=== PATIENT | male | born 1970 | race Caucasian/White ===

== ENCOUNTER → 2016-09-16 | Outpatient (CLI) | payer MEDICARE, OTHER ==
[~2016-09-16] MED LIST: AMARYL1 MG; AMLODIPINE-VAL1 EAC2; CLARITIN10 M2; CRESTOR; LINZESS72 MCG; PRILOSEC; SEROQUEL; TOPROL XL; TRINTELLIX; VITAMIN D400 UNI2
--- NOTE | ~2016-09-16 | CT6 ---
[facility] A Service of [facility] RADIOLOGY TEXT RESULTS PATIENT: ODILIA SIERRA LOCATION: [facility] : 66 UNIT #: [id number] AGE: [address]: Christopher Ho MD SEX: M ORDER DR: [id number] [facility] [address] [place], [place] [address] [id number] O MR#: [id number] Acc #: [id number] NAME: ODILIA SIERRA. : 1970 SEX: M STUDY DATE/TIME: 09/16/2016 11:56 UNIT: [facility] ROOM: STUDY DESCRIPTION: CT Abdomen WWo Cont Attending Physician: Christopher Ho M.D. Referring Physician: Christopher Ho M.D. Ordering Physician: Christopher Ho M.D. Primary Care Physician: Hay Plunkett M.D. MEDICAL IMAGING REPORT This report is preliminary unless electronic signature is present EXAM Multiphase liver CT. 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 He reports intermittent abdominal pain. He was diagnosed with cancer 2 years ago. This exam is requested for surveillance for metastatic disease. TECHNIQUE Axial precontrast imaging was obtained through the liver. This was followed by arterial, portal venous, venous, and 5-minute delayed-phase imaging through the abdomen. This CT exam was performed with one or more of the following radiation dose reduction techniques: automatic exposure control, adjustment of mA and/or kV according to patient size, and iterative reconstruction. FINDINGS Images through the lung bases demonstrate some bibasilar scarring, probably not significantly changed when compared to the prior exam. This patient has a very heterogeneous appearance to the left lobe of the liver. This is favored to represent diffuse tumor infiltration. Similar findings again were present in October 2014. There are also 2 additional foci suspected within the right hepatic lobe and I think that potentially these are larger than on the prior study from October 2014, now measuring about 2.0 cm more anteriorly and 2.0 cm more posteriorly, previously measuring 1.8 cm anteriorly and 1.5 cm posteriorly. There is also an exophytic structure arising from the lateral hepatic segment which appears to have increased in size as well. This now measures up to 2 cm. Same area previously measured 1.5 cm. This patient also has a large mass which is intimately associated with the second portion of the duodenum. It has STS. [facility] A Service of [facility] RADIOLOGY TEXT RESULTS PATIENT: ODILIA SIERRA LOCATION: [facility] : 66 UNIT #: [id number] AGE: [address]: Christopher Ho MD SEX: M ORDER DR: increased when compared to the prior study, now measuring up to 7.0 x 4.8 cm, previously 5.3 x 3.6 cm. Adrenal glands are unremarkable as is the spleen. Stomach is within normal limits as is the pancreas. Gallbladder appears unremarkable. Patient does appear to have a left renal cysts. There is no evidence of mechanical bowel obstruction. Intraabdominal nodes really do not appear pathologically enlarged. There is a small fat-containing umbilical hernia. Review of bony windows does not demonstrate any gross osseous abnormalities. IMPRESSION 1. The patient is suspected to have diffuse tumor infiltration of the left hepatic lobe. There are some additional suspected neoplastic foci identified within the right hepatic lobe. I think these have increased when compared to the prior examination. In addition, a large mass intimately associated with the second portion of the duodenum has also increased in size when compared to prior exam. I think constellation of findings is characteristic of progression of disease. 2. Please see the body of the report for any other additional incidental findings. Dictated by... Maty Munguia M.D. THIS IS AN ELECTRONICALLY VERIFIED REPORT Maty Munguia M.D. at 09/16/2016 4:49 PM AFF/tmw TD: 09/16/2016 15:29 JOB #: [id number] MEDICAL IMAGING REPORT Page 1 of 1 COPY
[2016-09-16 11:51] LABS: POC - CREATININE 0.89 mg/dL (0.64-1.27); POC - GFR >60.0 mL/min (>60)
== END | disposition home or self-care (01) ==
LOC: CCAT 10:43
PROVIDERS: Internal Medicine Hematology & Oncology
DX: C78.7 Secondary malignant neoplasm of liver and intrahepatic bile duct (principal); C7A.010 Malignant carcinoid tumor of the duodenum
CPT/HCPCS: 74170; 82565; Q9967

== ENCOUNTER 2016-10-04 18:41 | Emergency (ER) | payer MEDICARE, OTHER ==
[2016-10-04] MEDS ORDERED: AMARYL1 MG (18:47)
[2016-10-04] MEDS ORDERED: VITAMIN D400 UNI2 (18:48)
[2016-10-04] MEDS ORDERED: CRESTOR (18:48)
[2016-10-04] MEDS ORDERED: CLARITIN10 M2 (18:48)
[2016-10-04] MEDS ORDERED: PRILOSEC (18:48)
[2016-10-04] MEDS ORDERED: LINZESS72 MCG (18:48)
[2016-10-04] MEDS ORDERED: AMLODIPINE-VAL1 EAC2 (18:48)
[2016-10-04] MEDS ORDERED: TOPROL XL (18:49)
[2016-10-04] MEDS ORDERED: SEROQUEL (18:49)
[2016-10-04] MEDS ORDERED: TRINTELLIX (18:49)
[2016-10-04 19:37] LABS: BASOPHIL# 0.1 X10e3 (0-0.3); EOSINOPHIL# 0.2 X10e3 (0-0.7); EOSINOPHIL% 3.7 % (0.0-7.0); HEMATOCRIT 39.2 % (38.0-50.0); HEMOGLOBIN 13.4 gm/dL (13.0-16.0); LYMPHOCYTE# 0.9 X10e3 (1.0-3.5); LYMPHOCYTE% 16.5 % (17.0-45.0); MEAN CELL VOLUME 85.3 FL (83-96); MEAN CORPUSCULAR HEMOGLOBIN 29.1 PG (28-34); MEAN CORPUSCULAR HGB CONC 34.1 g/dL (30-36); MEAN PLATELET VOLUME 8.2 FL (6.5-11.5); MONOCYTE# 0.3 X10e3 (0-1.0); MONOCYTE% 5.9 % (3.0-12.0); NEUTROPHIL# 4.1 X10e3 (1.5-7.1); NEUTROPHIL% 72.9 % (40-75); PLATELET COUNT 202 X10e3 (140-420); RED CELL DISTRIBUTION WIDTH 13.2 % (11.0-15.5); WHITE BLOOD COUNT 5.6 X10e3 (4.0-10.5)
[2016-10-04 19:38] LABS: DIFF IND NO
[2016-10-04 19:58] LABS: ALBUMIN SERUM 4.8 g/dL (3.5-5.0); ALKALINE PHOSPHATASE 76 U/L (32-92); ALT (SGPT) 39 U/L (10-40); AST (SGOT) 32 U/L (10-42); BILIRUBIN, DIRECT <0.1 mg/dL (0.0-0.2); BILIRUBIN,INDIRECT 0.6 mg/dL (0.0-0.9); BILIRUBIN,TOTAL 0.7 mg/dL (0.2-2.0); BLOOD UREA NITROGEN 14 mg/dL (9-23); CARBON DIOXIDE 29 mmol/L (22-31); CHLORIDE 98 mmol/L (100-111); CREATININE SERUM 0.8 mg/dL (0.6-1.4); GLOM FILT RATE Estimated 106.4 mL/min (>60); GLUCOSE FASTING 257 mg/dL (70-110); POTASSIUM 3.3 mmol/L (3.5-5.1); PROTEIN TOTAL SERUM 7.8 g/dL (6.0-8.3); SODIUM 134 mmol/L (135-145)
== END 2016-10-04 20:19 | disposition home or self-care (01) ==
LOC: SED 18:41
PROVIDERS: Emergency Medicine
DX: E11.65 Type 2 diabetes mellitus with hyperglycemia (principal); F41.9 Anxiety disorder, unspecified; Z88.8 Allergy status to other drugs, medicaments and biological substances; Z79.899 Other long term (current) drug therapy
CPT/HCPCS: 36415; 80048; 80076; 82010; 82947; 85025; 96360; 99284